=== PATIENT | male | born 1965 | race African-American/Black ===

== ENCOUNTER 2017-02-16 23:21 | Emergency (ER) | payer OTHER ==
[~2017-02-16] VITALS: Ht 172.7 cm; Wt 111.0 kg
[~2017-02-16 23:21] MED LIST: ACET325T11 PO; CHLO50TA6 PO; COUM5TAB PO; HYDR25TA35 PO; OMEP20TA PO; PRIN20TA2 PO; PROM25TA5 PO; REGL10TA5 PO; SIME80CH CHEW
[2017-02-16 23:23] VITALS: BP 229/114; PULSE 81; RESP 18; TEMP 98.2; O2SAT 98
[2017-02-17] MEDS ORDERED: SODIUM CHLOR 0.9% 1000 ML INJ 1,000 ML IV SCH (00:26)
[2017-02-17] MEDS ORDERED: LIDOCAINE VISCOUS 2% SOLN 15 ML UDC PO ONE (00:30)
[2017-02-17] MEDS ORDERED: SODIUM CHLORIDE 0.9% FLUSH 10 ML FLUSH IV FLUSH PRN (00:30)
[2017-02-17] MEDS ORDERED: ALUMINUM/MAGNESIUM/SIMETH 30 ML CUP PO ONE (00:30)
[2017-02-17] MEDS ORDERED: ONDANSETRON HCL 4 MG/2 ML VIAL IV PUSH ONE (00:30)
--- NOTE | 2017-02-17 00:47 | PD ---
HPI Chief Complaint: Abdominal Pain Time Seen by Provider: 23:57 Travel History International Travel<30 days: No Contact w/Intl Traveler<30days: No Traveled to known affect area: No History of Present Illness HPI Patient 51-year-old male presents emergency department for acute on chronic epigastric abdominal pain. Patient states pain is been going on and off for the past 2 years. Patient states she's also been having hiccups during this time. He states that he had an upper endoscopy approximate 3 months ago which was negative. Patient states she's been taking Pepto-Bismol for home without relief. He also complains of some dark stools after he took the Pepto-Bismol. He describes pain is sharp nonradiating associated with some nausea and vomiting which is nonbloody and nonbilious. Also some runny stools. PFSH Past Medical History Autoimmune Disease: No Cancer: No Cardiovascular Problems: Yes Cerebrovascular Accident: Yes () Endocrine: No Genitourinary: No Hypertension: Yes Immune Disorder: No Musculoskeletal: No Neurologic: Yes (RIGHT SIDED WEAKNESS R/T CVA) Psychiatric: No Reproductive: No Respiratory: No Past Surgical History Pacemaker: No Social History Alcohol Use: No Tobacco Use: No Substance Use: No Allergies-Medications (Allergen,Severity, Reaction): Coded Allergies: Lortab (Verified Adverse Reaction, Mild, 02/10/15) "UPSET STOMACH" Reported Meds & Prescriptions Reported Meds & Active Scripts Active Zofran Odt (Ondansetron Odt) 4 Mg Tab 4 Mg SL Q6HR PRN Bentyl (Dicyclomine HCl) 20 Mg Tab 20 Mg PO QID Simethicone 80 Mg Chw 80 Mg CHEW Q8H PRN Reglan (Metoclopramide HCl) 10 Mg Tab 10 Mg PO 3 TIMES A DAY Thorazine (Chlorpromazine HCl) 50 Mg Tab 50 Mg PO 3 TIMES A DAY Hydralazine HCl 25 Mg Tab 25 Mg PO DAILY Coumadin 5 mg (Warfarin Sodium) 5 Mg Tab 5 Mg PO DAILY Reported Omeprazole 20 mg (Omeprazole) 20 Mg Tab 1 Tab PO DAILY Phenergan 25 mg (Promethazine HCl) 25 Mg Tab 25 Mg PO Q6H PRN Prinivil (Lisinopril) 20 Mg Tab 60 Mg PO DAILY Tylenol 325 Mg Tab (Acetaminophen) 325 Mg Tab 325 Mg PO Q4H PRN Review of Systems Except as stated in HPI: all other systems reviewed are Neg Physical Exam Narrative GENERAL: Well-developed well-nourished no apparent distress SKIN: Focused skin assessment warm/dry. HEAD: Atraumatic. Normocephalic. EYES: Pupils equal and round. No scleral icterus. No injection or drainage. ENT: No nasal bleeding or discharge. Mucous membranes pink and moist. NECK: Trachea midline. No JVD. CARDIOVASCULAR: Regular rate and rhythm. No murmur appreciated. RESPIRATORY: No accessory muscle use. Clear to auscultation. Breath sounds equal bilaterally. GASTROINTESTINAL: Abdomen soft, non-tender, nondistended. Hepatic and splenic margins not palpable. No tenderness no rebound tenderness psoas and obturator signs negative. Rectal exam shows no masses no hemorrhoids no fissure. Fecal occult is negative. No gross melena and no gross blood. MUSCULOSKELETAL: No obvious deformities. No clubbing. No cyanosis. No edema. NEUROLOGICAL: Awake and alert. No obvious cranial nerve deficits. Motor grossly within normal limits. Normal speech. PSYCHIATRIC: Appropriate mood and affect; insight and judgment normal. Data Data Last Documented VS Vital Signs Date Time Temp Pulse Resp B/P Pulse Ox O2 Delivery O2 Flow Rate FiO2 02/17/17 04:03 98.4 70 18 167/90 100 Room Air Orders Complete Blood Count With Diff (02/17/17:) Comprehensive Metabolic Panel (02/17/17:) Lipase (02/17/17:) Urinalysis - C+S If Indicated (02/17/17:) Iv Access Insert/Monitor (02/17/17) Ecg Monitoring (02/17/17:) Oximetry (02/17/17:) Sodium Chlor 0.9% 1000 Ml Inj (Ns 1000 M (02/17/17:) Sodium Chloride 0.9% Flush (Ns Flush) (02/17/17 00:30) Electrocardiogram (02/17/17:) Al-Mag Hy-Si 40-40-4 Mg/Ml Liq (Mag-Al P (02/17/17 00:30) Lidocaine 2% Viscous (Xylocaine 2% Visco (02/17/17 00:30) Ondansetron Inj (Zofran Inj) (02/17/17 00:30) Troponin I (02/17/17 01:45) Ct Abd/Pel W Iv Contrast(Rout) (02/17/17 ) Hydromorphone Pf Inj (Dilaudid Pf Inj) (02/17/17 02:30) Iohexol 350 Inj (Omnipaque 350 Inj) (02/17/17 02:55) Labs Laboratory Tests Test 02/17/17 02/17/17 01:15 04:20 White Blood Count 6.5 TH/MM3 Red Blood Count 4.66 MIL/MM3 Hemoglobin 12.4 GM/DL Hematocrit 38.0 % Mean Corpuscular Volume 81.7 FL Mean Corpuscular Hemoglobin 26.5 PG Mean Corpuscular Hemoglobin 32.5 % Concent Red Cell Distribution Width 13.6 % Platelet Count 246 TH/MM3 Mean Platelet Volume 8.2 FL Neutrophils (%) (Auto) 64.4 % Lymphocytes (%) (Auto) 22.4 % Monocytes (%) (Auto) 11.5 % Eosinophils (%) (Auto) 1.1 % Basophils (%) (Auto) 0.6 % Neutrophils # (Auto) 4.2 TH/MM3 Lymphocytes # (Auto) 1.5 TH/MM3 Monocytes # (Auto) 0.7 TH/MM3 Eosinophils # (Auto) 0.1 TH/MM3 Basophils # (Auto) 0.0 TH/MM3 CBC Comment DIFF FINAL Differential Comment Sodium Level 144 MEQ/L Potassium Level 4.3 MEQ/L Chloride Level 109 MEQ/L Carbon Dioxide Level 28.4 MEQ/L Anion Gap 7 MEQ/L Blood Urea Nitrogen 17 MG/DL Creatinine 1.17 MG/DL Estimat Glomerular Filtration 80 ML/MIN Rate Random Glucose 105 MG/DL Calcium Level 8.4 MG/DL Total Bilirubin 0.4 MG/DL Aspartate Amino Transf 19 U/L (AST/SGOT) Alanine Aminotransferase 24 U/L (ALT/SGPT) Alkaline Phosphatase 62 U/L Troponin I LESS THAN 0.02 NG/ML Total Protein 6.9 GM/DL Albumin 3.5 GM/DL Lipase 126 U/L Urine Color YELLOW Urine Turbidity HAZY Urine pH 6.5 Urine Specific [place] 1.021 Urine Protein NEG mg/dL Urine Glucose (UA) NEG mg/dL Urine Ketones NEG mg/dL Urine Occult Blood NEG Urine Nitrite NEG Urine Bilirubin NEG Urine Urobilinogen LESS THAN 2.0 MG/DL Urine Leukocyte Esterase NEG Urine RBC LESS THAN 1 /hpf Urine WBC 1 /hpf Urine Squamous Epithelial <1 /hpf Cells Urine Amorphous Sediment RARE Urine Mucus FEW /lpf Microscopic Urinalysis Comment CULT NOT INDICATED MDM Medical Decision Making Medical Screen Exam Complete: Yes Emergency Medical Condition: Yes Interpretation(s) EKG shows normal sinus rhythm with normal axis normal R-wave progression. Nonspecific T-wave abnormality without acute ischemia. Intervals within normal limits. This normal EKG. No change from 07/27/2013. Differential Diagnosis Gastritis, gastritis, pancreatitis, reflux, enteritis. Acute abdomen unlikely, ACS briefly considered but patient is highly atypical for. Narrative Course Patient was roomed emergency department, labs are reassuring CBC CMP lipase and troponin. His abdominal pain appears to be more chronic. Patient was given GI cocktail as well as Zofran which had little relief and his symptoms. Was given Dilaudid and was feeling better after that. He appeared comfortable and in no apparent distress throughout his stay in emergency department. Discussed with the patient that his labs are reassuring that if he is still concern is still having pain when he did consider doing a CT scan. Discussed with him the risk of radiation he agrees for a CAT scan. Last 24 hours Impressions Abdomen/Pelvis CT 02/17/17 0000 Signed Impressions: Service Date/Time: Friday, February 17, 2017 02:54 - CONCLUSION: 1. Wall thickening involving the duodenum suggesting duodenitis. 2. Small hiatal hernia. Leo Barajas Jr., MD Discussed the results with the patient who appears well's abdomen is benign. 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 He feels reassured. He is stable for discharge this time. Discussed with him symptomatic management home and returned ED criteria. Diagnosis Primary Impression: Epigastric abdominal pain Additional Impression: Duodenitis Med/Other Pt SpecificInfo: Prescription(s) given Scripts Ondansetron Odt (Zofran Odt)4 Mg Tab4 Mg SL Q6HR PRN (Nausea/Vomiting) #20 TAB Ref 0 Prov:Aayush Randle MD 02/17/17 Dicyclomine (Bentyl)20 Mg Tab20 Mg PO QID #20 TAB Ref 0 Prov:Aayush Randle MD 02/17/17 Disposition: 01 DISCHARGE HOME Condition: Stable Aayush Randle MD Feb 17, 2017 00:47
[2017-02-17 01:03] VITALS: BP 154/86; PULSE 88; RESP 18; O2SAT 99
[2017-02-17 01:26] LABS: AUTOMATED NEUTROPHIL # 4.2 TH/MM3 (1.8-7.7); BASOPHIL % 0.6 % (0.0-2.0); EOSINOPHIL # 0.1 TH/MM3 (0-0.4); EOSINOPHIL % 1.1 % (0.0-4.0); HEMO FLAGS DIFF FINAL; LYMPH % 22.4 % (9.0-44.0); LYMPHOCYTE # 1.5 TH/MM3 (1.0-4.8); MEAN CELL VOLUME 81.7 FL (80.0-100.0); MEAN CORPUSCULAR HEMOGLOBIN 26.5 PG (27.0-34.0); MEAN CORPUSCULAR HGB CONC 32.5 % (32.0-36.0); MONO % 11.5 % (0.0-8.0); NEUT % 64.4 % (16.0-70.0); PLATELET COUNT 246 TH/MM3 (150-450); RED BLOOD COUNT 4.66 MIL/MM3 (4.50-5.90); RED CELL DISTRIBUTION WIDTH 13.6 % (11.6-17.2); WHITE BLOOD COUNT 6.5 TH/MM3 (4.0-11.0)
[2017-02-17 01:39] LABS: ALKALINE PHOSPHATASE 62 U/L (45-117); TOTAL BILIRUBIN ADULT 0.4 MG/DL (0.2-1.0)
[2017-02-17 01:42] LABS: ALT (GPT) 24 U/L (12-78); ANION GAP 7 MEQ/L (5-15); AST (GOT) 19 U/L (15-37); BICARBONATE 28.4 MEQ/L (21.0-32.0); BLOOD UREA NITROGEN 17 MG/DL (7-18); CHLORIDE 109 MEQ/L (98-107); GLOMERULAR FILTRATION RATE 80 ML/MIN (>89); POTASSIUM 4.3 MEQ/L (3.5-5.1); SODIUM (NA) 144 MEQ/L (136-145)
[2017-02-17] MEDS ORDERED: HYDROmorphone HCL PF 1 MG/ML VIAL IV PUSH ONE (02:30)
[2017-02-17] MEDS ORDERED: IOHEXOL 350 MG/ML 10 ML VIAL (for RAD DIAG) IV ONE (02:55)
[2017-02-17 03:13] VITALS: BP 161/85; PULSE 75; RESP 18; O2SAT 100
--- NOTE | 2017-02-17 03:16 | RADRPT ---
EXAM DATE/TIME: 02/17/2017 02:54 [facility] COMPARISON: CT ABDOMEN & PELVIS W CONTRAST, February 10, 2015, 3:22. INDICATIONS : Abdominal pain and vomiting IV CONTRAST: 97 cc Omnipaque 350 (iohexol) IV ORAL CONTRAST: No oral contrast ingested. RADIATION DOSE: 15.22 CTDIvol (mGy) MEDICAL HISTORY : Cardiovascular disease. Cerebrovascular disease. Hypertension.Hiccoughs. Right paresis. Helicobacter . SURGICAL HISTORY : None. ENCOUNTER: Initial ACUITY: 1 day PAIN SCALE: 9/10 LOCATION: abdomen TECHNIQUE: Volumetric scanning of the abdomen and pelvis was performed. Using automated exposure control and ad justment of the mA and/or kV according to patient size, radiation dose was kept as low as reasonably achievable to obtain optimal diagnostic quality images. FINDINGS: LOWER LUNGS: The visualized lower lungs are clear. A small hiatal hernia noted. LIVER: Homogeneous density without lesion. There is no dilation of the biliary tree. No calcified gallston es. SPLEEN: Normal size without lesion. PANCREAS: Within normal limits. KIDNEYS: Normal in size and shape. There is no mass, stone or hydronephrosis. ADRENAL GLANDS: Within normal limits. VASCULAR: There is no aortic aneurysm. BOWEL/MESENTERY: Circumferential wall thickening without stranding is seen involving the duodenum in the immediate adj acent jejunum. No dilatation of the bowel. No free air or free fluid. The remaining small bowel and l arge bowel are normal. Stomach is unremarkable. ABDOMINAL WALL: Within normal limits. RETROPERITONEUM: There is no lymphadenopathy. BLADDER: No wall thickening or mass. REPRODUCTIVE: Within normal limits. INGUINAL: There is no lymphadenopathy or hernia. MUSCULOSKELETAL: Within normal limits for patient age. CONCLUSION: 1. Wall thickening involving the duodenum suggesting duodenitis. 2. Small hiatal hernia. Leo Barajas Jr., MD on February 17, 2017 at 3:12 Board Certified Radiologist. This report was verified electronically.
[2017-02-17] MEDS ORDERED: BENT20TA PO (03:31)
[2017-02-17] MEDS ORDERED: ZOFR4TAB3 SL (03:31)
[2017-02-17 04:03] VITALS: BP 167/90; PULSE 70; RESP 18; TEMP 98.4; O2SAT 100
[2017-02-17 04:37] LABS: BLOOD, URINE NEG (NEG); COMMENT (UR) CULT NOT INDICATED; CULTURE IF INDICATED CULT NOT INDICATED; GLUCOSE,URINE NEG (NEG); KETONE, URINE NEG (NEG); MUCUS URINE FEW /lpf (OCC); NITRITE,URINE NEG (NEG); PH, URINE 6.5 (5.0-8.5); SQUAMOUS EPITHELIAL CELL URINE <1 /hpf (0-5); URINE COLOR YELLOW (YELLW/STRAW)
--- NOTE | 2017-02-17 10:37 | EKG ---
Date Performed: 02/17/2017 Time Performed: 01:07:07 PTAGE: 51 years EKG: Sinus rhythm MODERATE INTRAVENTRICULAR CONDUCTION DELAY NONSPECIFIC T-WAVE ABNORMALITY BORDERLINE ECG Compared to prior tracing no significant change PREVIOUS TRACING : 09/17/2013 18.15 DOCTOR: Kamila Sanchez Interpretating Date/Time 02/17/2017 10:32:40
== END 2017-02-17 04:30 | disposition home or self-care (01) ==
LOC: NEPE 23:21
DX: R10.13 Epigastric pain (principal); I10 Essential (primary) hypertension; Z86.73 Personal history of transient ischemic attack (TIA), and cerebral infarction without residual deficits
CPT/HCPCS: 74177; 80053; 81001; 83690; 84484; 85025; 93005; 96374; 96375; 99284; J1170; J2405; J7030; Q9967

== ENCOUNTER 2017-03-15 10:51 | Emergency (ER) | payer OTHER ==
[2017-03-15] VITALS (7 sets, daily range): BP systolic 108–193; BP diastolic 93–108; PULSE 57–67; RESP 16–17; TEMP 98.8; O2SAT 97–99
[~2017-03-15] VITALS: Ht 172.7 cm; Wt 114.0 kg
[~2017-03-15 10:51] MED LIST changes: +BENT20TA PO; +ZOFR4TAB3 SL
[2017-03-15] MEDS ORDERED: SODIUM CHLOR 0.9% 1000 ML INJ 1,000 ML IV SCH (11:17)
--- NOTE | 2017-03-15 11:22 | PD ---
HPI Chief Complaint: GI Complaint Time Seen by Provider: 11:13 Travel History International Travel<30 days: No Contact w/Intl Traveler<30days: No Traveled to known affect area: No History of Present Illness HPI 51-year-old male with chronic abdominal pain, chronic 8 cups, here for evaluation of abdominal pain, nausea, vomiting, and diarrhea. Patient reports history of CVA 4 years ago, and since that time he has had hiccups. He states that for the last week he has been having nausea, vomiting, and diarrhea and has had worsening abdominal cramping over the last day. No fevers. No history of abdominal surgeries. Emesis and bowel movements are nonbloody. Chart review shows that the patient was here earlier this month for the same, had CT abdomen pelvis performed which showed duodenitis. The patient has not followed up with his primary care physician nor [facility] after that visit. PFSH Past Medical History Autoimmune Disease: No Cancer: No Cardiovascular Problems: Yes Cerebrovascular Accident: Yes () Endocrine: No Genitourinary: No Hypertension: Yes Immune Disorder: No Musculoskeletal: No Neurologic: Yes (RIGHT SIDED WEAKNESS R/T CVA) Psychiatric: No Reproductive: No Respiratory: No ?: Not Past Surgical History Pacemaker: No Social History Alcohol Use: No Tobacco Use: No Substance Use: No Allergies-Medications (Allergen,Severity, Reaction): Coded Allergies: Lortab (Verified Adverse Reaction, Mild, 03/15/17) "UPSET STOMACH" Reported Meds & Prescriptions Reported Meds & Active Scripts Active Reported Amlodipine (Amlodipine Besylate) 10 Mg Tab 10 Mg PO DAILY Hydralazine (Hydralazine HCl) 100 Mg Tab 250 Mg PO TID Take with meals Warfarin 7.5 Mg Tab 7.5 Mg PO DAILY Review of Systems Except as stated in HPI: all other systems reviewed are Neg Physical Exam Narrative GENERAL: Well-developed, well-nourished, hiccups, no acute distress. SKIN: Focused skin assessment warm/dry. No rash. HEAD: Atraumatic. Normocephalic. EYES: Pupils equal and round. No scleral icterus. No injection or drainage. ENT: Mucous membranes pink and moist. NECK: Trachea midline. No JVD. CARDIOVASCULAR: Regular rate and rhythm. No murmur appreciated. RESPIRATORY: No accessory muscle use. Clear to auscultation. Breath sounds equal bilaterally. GASTROINTESTINAL: Abdomen soft, nondistended. Mild diffuse tenderness without peritoneal signs. Normal bowel sounds. MUSCULOSKELETAL: No obvious deformities. No clubbing. No cyanosis. No edema. NEUROLOGICAL: Awake and alert. No obvious cranial nerve deficits. Motor grossly within normal limits. Normal speech. PSYCHIATRIC: Appropriate mood and affect; insight and judgment normal. Data Data Last Documented VS Vital Signs Date Time Temp Pulse Resp B/P Pulse Ox O2 Delivery O2 Flow Rate FiO2 03/15/17 13:54 57 16 157/99 03/15/17 13:15 97 Room Air 03/15/17 11:02 98.8 Orders Urinalysis - C+S If Indicated (03/15/17 11:05) Complete Blood Count With Diff (03/15/17 11:17) Comprehensive Metabolic Panel (03/15/17 11:17) Lipase (03/15/17 11:17) Prothrombin Time / Inr (Pt) (03/15/17 11:17) Act Partial Throm Time (Ptt) (03/15/17 11:17) Ct Abd/Pel W Iv Contrast(Rout) (03/15/17 11:17) Iv Access Insert/Monitor (03/15/17 11:17) Ecg Monitoring (03/15/17 11:17) Oximetry (03/15/17 11:17) Morphine Inj (Morphine Inj) (03/15/17 11:30) Sodium Chlor 0.9% 1000 Ml Inj (Ns 1000 M (03/15/17 11:17) Sodium Chloride 0.9% Flush (Ns Flush) (03/15/17 11:30) Electrocardiogram (03/15/17 11:17) Al-Mag Hy-Si 40-40-4 Mg/Ml Liq (Mag-Al P (03/15/17 11:30) Lidocaine 2% Viscous (Xylocaine 2% Visco (03/15/17 11:30) Metoclopramide Inj (Reglan Inj) (03/15/17 11:30) Ckmb (Isoenzyme) Profile (03/15/17 11:20) Troponin I (03/15/17 11:20) CKMB (03/15/17 11:35) CKMB% (03/15/17 11:35) Iohexol 350 Inj (Omnipaque 350 Inj) (03/15/17 12:51) Hydromorphone Pf Inj (Dilaudid Pf Inj) (03/15/17 13:15) Labs Laboratory Tests Test 03/15/17 03/15/17 11:35 11:55 White Blood Count 6.8 TH/MM3 Red Blood Count 4.76 MIL/MM3 Hemoglobin 13.0 GM/DL Hematocrit 39.9 % Mean Corpuscular Volume 83.8 FL Mean Corpuscular Hemoglobin 27.3 PG Mean Corpuscular Hemoglobin 32.6 % Concent Red Cell Distribution Width 12.5 % Platelet Count 239 TH/MM3 Mean Platelet Volume 8.2 FL Neutrophils (%) (Auto) 71.5 % Lymphocytes (%) (Auto) 19.2 % Monocytes (%) (Auto) 6.5 % Eosinophils (%) (Auto) 1.3 % Basophils (%) (Auto) 1.5 % Neutrophils # (Auto) 4.9 TH/MM3 Lymphocytes # (Auto) 1.3 TH/MM3 Monocytes # (Auto) 0.4 TH/MM3 Eosinophils # (Auto) 0.1 TH/MM3 Basophils # (Auto) 0.1 TH/MM3 CBC Comment DIFF FINAL Differential Comment Prothrombin Time 10.6 SEC Prothromb Time International 1.0 RATIO Ratio Activated Partial 26.9 SEC Thromboplast Time Sodium Level 145 MEQ/L Potassium Level 4.0 MEQ/L Chloride Level 107 MEQ/L Carbon Dioxide Level 28.7 MEQ/L Anion Gap 9 MEQ/L Blood Urea Nitrogen 10 MG/DL Creatinine 1.10 MG/DL Estimat Glomerular Filtration 86 ML/MIN Rate Random Glucose 96 MG/DL Calcium Level 8.7 MG/DL Total Bilirubin 0.6 MG/DL Aspartate Amino Transf 12 U/L (AST/SGOT) Alanine Aminotransferase 22 U/L (ALT/SGPT) Alkaline Phosphatase 68 U/L Total Creatine Kinase 104 U/L Creatine Kinase MB 1.0 NG/ML Troponin I LESS THAN 0.02 NG/ML Total Protein 7.1 GM/DL Albumin 3.5 GM/DL Lipase 98 U/L Urine Collection Type CLEAN CATCH Urine Color YELLOW Urine Turbidity SLIGHT Urine pH 7.0 Urine Specific [place] 1.019 Urine Protein NEG mg/dL Urine Glucose (UA) NEG mg/dL Urine Ketones NEG mg/dL Urine Occult Blood NEG Urine Nitrite NEG Urine Bilirubin NEG Urine Leukocyte Esterase NEG Urine Squamous Epithelial 0-5 /hpf Cells Urine Amorphous Sediment LARGE Microscopic Urinalysis Comment CULT NOT INDICATED Urine Collection Time 1155 MDM Medical Decision Making Medical Screen Exam Complete: Yes Emergency Medical Condition: Yes Medical Record Reviewed: Yes Differential Diagnosis Gastroenteritis, peptic ulcer disease, duodenitis, gastritis, dehydration, hepatobiliary disease, pancreatitis, acute on chronic abdominal pain, chronic hiccups, ACS less likely Narrative Course Vital signs reviewed. CBC is unremarkable. CMP is unremarkable. Lipase is 98. Cardiac enzymes are negative. UA is unremarkable. CT abdomen pelvis: CONCLUSION: 1. Nonspecific duodenal wall thickening slightly less prominent than on the comparison study. 2. Small hiatal hernia again noted. 3. Degenerative findings lumbar spine and sacroiliac joints. Patient was made aware of all findings. He was given pain medication and is resting comfortably. There are no peritoneal signs on exam. He still having some abdominal discomfort. I will start him on Cipro and Flagyl. He has a svp operations and was instructed to follow-up with him this week. His cardiac enzymes are negative and his EKG is nonischemic. I do not believe that this is ACS. This is a very chronic issue for the patient. He was informed on when to return to the emergency department. He verbalizes understanding and agreement with plan. Diagnosis Primary Impression: Duodenitis Referrals: Primary Care Physician 3 days Additional Instructions: Follow-up with your primary care physician this week. Follow-up with your [facility] operations this week. Return to the emergency department for worsening symptoms or any other concerns. Scripts Tramadol 50 Mg Tab50 Mg PO Q6H PRN (PAIN) #15 TAB Ref 0 Prov:Dwayne Bella MD 03/15/17 Metronidazole (Flagyl)500 Mg [id number] Mg PO BID 10 Days Ref 0 Prov:Dwayne Bella MD 03/15/17 Ciprofloxacin (Cipro)500 Mg [id number] Mg PO BID 10 Days Ref 0 Prov:Dwayne Bella MD 03/15/17 Disposition: 01 DISCHARGE HOME Condition: Stable Dwayne Bella MD Mar 15, 2017 11:22
[2017-03-15] MEDS ORDERED: METOCLOPRAMIDE HCL 10 MG/2 ML VIAL IV PUSH ONE (11:30)
[2017-03-15] MEDS ORDERED: ALUMINUM/MAGNESIUM/SIMETH 30 ML CUP PO ONE (11:30)
[2017-03-15] MEDS ORDERED: MORPHINE SULFATE 4 MG/ML INJ IV PUSH ONE (11:30)
[2017-03-15] MEDS ORDERED: LIDOCAINE VISCOUS 2% SOLN 15 ML UDC PO ONE (11:30)
[2017-03-15 11:53] LABS: AUTOMATED NEUTROPHIL # 4.9 TH/MM3 (1.8-7.7); BASOPHIL # 0.1 TH/MM3 (0-0.2); BASOPHIL % 1.5 % (0.0-2.0); CHLORIDE 107 MEQ/L (98-107); EOSINOPHIL # 0.1 TH/MM3 (0-0.4); EOSINOPHIL % 1.3 % (0.0-4.0); HEMATOCRIT 39.9 % (39.0-51.0); HEMO FLAGS DIFF FINAL; LYMPH % 19.2 % (9.0-44.0); LYMPHOCYTE # 1.3 TH/MM3 (1.0-4.8); MEAN CELL VOLUME 83.8 FL (80.0-100.0); MEAN CORPUSCULAR HEMOGLOBIN 27.3 PG (27.0-34.0); MEAN CORPUSCULAR HGB CONC 32.6 % (32.0-36.0); MONO % 6.5 % (0.0-8.0); NEUT % 71.5 % (16.0-70.0); PLATELET COUNT 239 TH/MM3 (150-450); RED BLOOD COUNT 4.76 MIL/MM3 (4.50-5.90); RED CELL DISTRIBUTION WIDTH 12.5 % (11.6-17.2); SODIUM (NA) 145 MEQ/L (136-145); WHITE BLOOD COUNT 6.8 TH/MM3 (4.0-11.0)
[2017-03-15] MEDS ORDERED: AMLO10TA2 PO (11:53)
[2017-03-15] MEDS ORDERED: WARF-21 PO (11:53)
[2017-03-15] MEDS ORDERED: HYDR-3801 PO (11:53)
[2017-03-15 11:57] LABS: ANION GAP 9 MEQ/L (5-15); BICARBONATE 28.7 MEQ/L (21.0-32.0); BLOOD UREA NITROGEN 10 MG/DL (7-18)
[2017-03-15 11:58] LABS: APTT (PATIENT) 26.9 SEC (24.3-30.1); PROTHROMBIN TIME - PATIENT 10.6 SEC (9.8-11.6)
[2017-03-15 11:59] LABS: ALT (GPT) 22 U/L (12-78); AST (GOT) 12 U/L (15-37)
[2017-03-15 12:00] LABS: GLOMERULAR FILTRATION RATE 86 ML/MIN (>89)
[2017-03-15 12:01] LABS: TOTAL BILIRUBIN ADULT 0.6 MG/DL (0.2-1.0)
[2017-03-15 12:02] LABS: ALKALINE PHOSPHATASE 68 U/L (45-117)
[2017-03-15 12:04] LABS: CREATINE KINASE 104 U/L (39-308)
[2017-03-15] MEDS: SODIUM CHLORIDE 0.9% FLUSH 10 ML FLUSH IV FLUSH PRN ×2 (12:06→13:46)
[2017-03-15 12:14] LABS: BLOOD, URINE NEG (NEG); GLUCOSE,URINE NEG (NEG); KETONE, URINE NEG (NEG); NITRITE,URINE NEG (NEG)
[2017-03-15 12:15] LABS: METHOD OF COLLECTION CLEAN CATCH; URINE COLOR YELLOW (YELLW/STRAW)
[2017-03-15 12:25] LABS: COMMENT (UR) CULT NOT INDICATED; COMMENT2 (UR) MUCOUS PRESENT; CULTURE IF INDICATED CULT NOT INDICATED; SQUAMOUS EPITHELIAL CELL URINE 0-5 /hpf (0-5)
[2017-03-15] MEDS ORDERED: IOHEXOL 350 MG/ML 10 ML VIAL (for RAD DIAG) IV ONE (12:51)
[2017-03-15] MEDS ORDERED: HYDROmorphone HCL PF 1 MG/ML VIAL IV PUSH ONE (13:15)
--- NOTE | 2017-03-15 13:50 | RADHPO ---
EXAM DATE/TIME: 03/15/2017 12:38 [facility] COMPARISON: CT ABDOMEN & PELVIS W CONTRAST, February 17, 2017, 2:54. INDICATIONS : Abdominal pain and chronic hiccups. IV CONTRAST: 95 cc Omnipaque 350 (iohexol) IV ORAL CONTRAST: No oral contrast ingested. RADIATION DOSE: 21.57 CTDIvol (mGy) MEDICAL HISTORY : Cerebrovascular disease. Hypertension. Right paresis. SURGICAL HISTORY : None. ENCOUNTER: Initial ACUITY: 2 days PAIN SCALE: 4/10 LOCATION: abdomen/pelvis TECHNIQUE: Volumetric scanning of the abdomen and pelvis was performed. Using automated exposure control and ad justment of the mA and/or kV according to patient size, radiation dose was kept as low as reasonably achievable to obtain optimal diagnostic quality images. FINDINGS: LOWER LUNGS: The visualized lower lungs are clear. LIVER: Homogeneous density without lesion. There is no dilation of the biliary tree. No calcified gallston es. SPLEEN: Normal size without lesion. PANCREAS: Within normal limits. KIDNEYS: Normal in size and shape. There is no mass, stone or hydronephrosis. ADRENAL GLANDS: Within normal limits. VASCULAR: There is no aortic aneurysm. BOWEL/MESENTERY: Small hiatal hernia. Duodenal wall thickening involving the second and third portionsof the duodenum less prominent than on the comparison study. No evidence of bowel dilatation. No free air or free flu id. Appendix is within normal limits. ABDOMINAL WALL: Within normal limits. RETROPERITONEUM: There is no lymphadenopathy. BLADDER: No wall thickening or mass. REPRODUCTIVE: Within normal limits. INGUINAL: There is no lymphadenopathy or hernia. MUSCULOSKELETAL: Prominent arthritic findings of the sacroiliac joints. Degenerative findings in lumbar spine. CONCLUSION: 1. Nonspecific duodenal wall thickening slightly less prominent than on the comparison study. 2. Small hiatal hernia again noted. 3. Degenerative findings lumbar spine and sacroiliac joints. Cordell Platt MD on March 15, 2017 at 13:44 Board Certified Radiologist. This report was verified electronically.
[2017-03-15] MEDS ORDERED: CIPR-9 PO (14:14)
[2017-03-15] MEDS ORDERED: METR-1 PO (14:14)
[2017-03-15] MEDS ORDERED: TRAM50TA PO (14:15)
[2017-03-15] MEDS ORDERED: CIPROFLOXACIN 500 MG TAB PO ONE (14:30)
[2017-03-15] MEDS ORDERED: metroNIDAZOLE 500 MG TAB PO ONE (14:30)
--- NOTE | 2017-03-16 23:10 | EKG ---
Date Performed: 03/15/2017 Time Performed: 11:22:44 PTAGE: 51 years EKG: Sinus rhythm Normal ECG PREVIOUS TRACING : 02/17/2017 01.07 Compared to prior tracing no significant change DOCTOR: Ernesto Wood Interpretating Date/Time 03/16/2017 23:08:54
== END 2017-03-15 15:16 | disposition home or self-care (01) ==
LOC: PHED 10:51
DX: K29.80 Duodenitis without bleeding (principal); R11.2 Nausea with vomiting, unspecified; R19.7 Diarrhea, unspecified; R06.6 Hiccough; I10 Essential (primary) hypertension; G89.29 Other chronic pain
CPT/HCPCS: 74177; 80053; 81001; 82550; 82552; 83690; 84484; 85025; 85610; 85730; 93005; 96361; 96374; 96375; 99284; J1170; J2270; J2765; J7030; Q9967

== ENCOUNTER → 2017-10-13 | Outpatient (CLI) | payer OTHER ==
[~2017-10-13] MED LIST changes: -ACET325T11 PO; +AMLO10TA2 PO; -BENT20TA PO; -CHLO50TA6 PO; +CIPR-9 PO; -COUM5TAB PO; +HYDR-3801 PO; -HYDR25TA35 PO; +METR-1 PO; -OMEP20TA PO; -PRIN20TA2 PO; -PROM25TA5 PO; -REGL10TA5 PO; -SIME80CH CHEW; +TRAM50TA PO; +WARF-21 PO; -ZOFR4TAB3 SL
--- NOTE | 2017-10-13 11:24 | RADRPT ---
EXAM DATE/TIME: 10/13/2017 09:40 [facility] COMPARISON: CT ABDOMEN & PELVIS W CONTRAST, March 15, 2017, 12:38. INDICATIONS : Nausea and vomiting. MEDICAL HISTORY : Hypertension. Gastroesophageal reflux disease. Cerebrovascualr accident. Hemiplegia. Ulcer. Osteoar thritis. Anxiety. SURGICAL HISTORY : None. ENCOUNTER: Initial ACUITY: > 1 year PAIN SCORE: 0/10 LOCATION: Abdomen. MEASUREMENTS: LIVER: 14.6 cm length COMMON DUCT: 5 mm RIGHT KIDNEY: 12.7 x 6.6 x 6.7 cm SPLEEN: 10.9 cm length FINDINGS: LIVER: Normal echotexture without focal lesion or ductal dilatation. COMMON DUCT: No intraluminal mass or stone visualized. GALLBLADDER: Contains no stones, demonstrates no wall thickening or pericholecystic fluid. PANCREAS: The visualized portions are within normal limits. Partially obscured, however. RIGHT KIDNEY: No hydronephrosis, stone or mass. SPLEEN: No focal lesion. CONCLUSION: Pancreas is partially obscured. Otherwise negative. Reji Tanner MD on October 13, 2017 at 11:19 Board Certified Radiologist. This report was verified electronically.
== END ==
LOC: HRAD 09:22
DX: R11.2 Nausea with vomiting, unspecified (principal)
CPT/HCPCS: 76705